=== PATIENT | female | born 1995 | race Caucasian/White ===

== ENCOUNTER 2021-10-27 04:01 | Emergency (ER) | payer BC ==
[2021-10-27] MEDS: Ondansetron 4 MG Tab.DIS PO STA (04:43)
[2021-10-27 05:50] LABS: ESTIMATED GFR 105 mL/min (>60)
[2021-10-27] MEDS: hydrOXYzine HCl 50 MG/ML SDV IM STA (06:28)
== END 2021-10-27 06:40 | disposition home or self-care (01) ==
LOC: FB.ED 04:01
DX: K52.9 Noninfective gastroenteritis and colitis, unspecified (principal); U07.1 COVID-19; Z88.0 Allergy status to penicillin; Z86.16 Personal history of COVID-19
CPT/HCPCS: 36415; 80048; 81001; 85025; 87045; 87046; 87177; 87209; 87427; 87635; 96372; 99284; J3410; Q0162; U0002

== ENCOUNTER 2022-06-11 06:53 | Day surgery (SDC) | payer BC ==
[~2022-06-11 06:53] MED LIST: Lactated Ringers 1,000 ML IV SCH; Sodium Chloride 0.9% 10 ML Syringe FLUSH PRN
[2022-06-11] MEDS ORDERED: HYDROmorphone 2 MG/ML SDV IV ONE (06:54)
[2022-06-11] MEDS ORDERED: Sugammadex Sodium 200 MG/2 ML VIAL IV ONE (06:54)
[2022-06-11] MEDS ORDERED: Lactated Ringers 1,000 ML IV ONE (06:54)
[2022-06-11] MEDS ORDERED: fentaNYL 100 MCG/2 ML SDV IV ONE (06:54)
[2022-06-11] MEDS ORDERED: Propofol 200 MG/20 ML SDV IV ONE (06:54)
[2022-06-11] MEDS ORDERED: Labetalol 100 MG/20 ML MDV IV ONE (06:54)
[2022-06-11] MEDS ORDERED: Dexamethasone 4 MG/ML 5 ML MDV IVPUSH ONE (06:54)
[2022-06-11] MEDS ORDERED: Rocuronium 100 MG/10 ML MDV IV ONE (06:54)
[2022-06-11] MEDS ORDERED: Midazolam 1 MG/ML 2 ML SDV IV ONE (06:54)
[2022-06-11] MEDS ORDERED: Ondansetron 4 MG/2 ML SDV IVPUSH ONE (06:54)
[2022-06-11] MEDS ORDERED: Ketorolac 30 MG/ML SDV IVPUSH ONE (06:54)
[2022-06-11] MEDS ORDERED: Scopolamine 1.5 MG Transdermal Patch TOP ONE (06:54)
[2022-06-11] MEDS ORDERED: ceFAZolin 2 GM Vial IVPUSH ONE (08:00)
[2022-06-11] MEDS ORDERED: Bupivacaine 0.5% 30 ML SDV NERVRT ONE (08:24)
[2022-06-11] MEDS ORDERED: Lidocaine 1% with EPINEPHrine 1:100,000 20 ML MDV NERVRT ONE (08:24)
== END 2022-06-11 11:55 | disposition home or self-care (01) ==
LOC: FB.SDS 06:53
PROVIDERS: ATTEND Surgery
DX: K80.10 Calculus of gallbladder with chronic cholecystitis without obstruction (principal); K76.0 Fatty (change of) liver, not elsewhere classified; F41.9 Anxiety disorder, unspecified; F32.A Depression, unspecified; E66.01 Morbid (severe) obesity due to excess calories; Z79.899 Other long term (current) drug therapy; Z88.1 Allergy status to other antibiotic agents; Z87.891 Personal history of nicotine dependence; Z68.39 Body mass index [BMI] 39.0-39.9, adult
CPT/HCPCS: 00790; 36415; 47562; 81025; 88304; A9270; J0690; J1100; J1170; J1885; J2250; J2405; J2704; J3010; J3490; J7120